=== PATIENT | female | born 1990 | race Asian ===

== ENCOUNTER 2021-11-09 15:39 | Outpatient (RCR) | payer OTHER, SELFPAY ==
[2021-10-04 14:48] VITALS: BP 111/66; PULSE 79
[2021-10-12 17:19] VITALS: BP 114/71; PULSE 80
[2021-10-18 17:30] VITALS: BP 109/60; PULSE 88
[2021-10-25 18:00] VITALS: BP 112/70; PULSE 78
[2021-11-01 16:46] VITALS: BP 124/63; PULSE 75
--- NOTE | ~2021-11-09 | US_ITS ---
US OB limited 10/18/2021 17:44 Indication: Evaluate amniotic fluid Procedure: High-resolution Limited obstetrical ultrasound using transabdominal technique Comparison: No prior studies for comparison. Findings: There is a single living intrauterine in vertex presentation. Placenta is anterio r without previa. Amniotic fluid index within normal limits measuring 8.5 cm (normal range for gestat ional age is 8.1-24.8 cm). Impression: 1: Single living intrauterine in vertex presentation. 2: Normal HARLEEN measures 8.5 cm. Reviewed, dictated and finalized at location B. Impression: 1: Single living intrauterine in vertex presentation. 2: Normal HARLEEN measures 8.5 cm.
[2021-11-09 16:25] VITALS: BP 122/72; PULSE 71
== END 2022-01-02 23:59 | disposition home or self-care (01) ==
LOC: ANHOBOP 15:39
PROVIDERS: Visit Provider Obstetrics & Gynecology
DX: O24.419 Gestational diabetes mellitus in pregnancy, unspecified control (principal); Z3A.32 32 weeks gestation of pregnancy; Z3A.37 37 weeks gestation of pregnancy
CPT/HCPCS: 59025; 76815